=== PATIENT | female | born 1970 | race Caucasian/White ===

== ENCOUNTER → 2017-05-19 | Day surgery (SDC) | payer OTHER ==
--- NOTE | 2017-05-19 14:58 | RADIOLOGY REPORT (SQ) ---
EXAM DESCRIPTION: ARTHRO SHOULDER INJECTION; FLUORO/NEEDLE PLACEMENT COMPLETED DATE/TIME: 05/19/2017 2:06 pm; 05/19/2017 2:07 pm REASON FOR STUDY: IMPINGEMENT SYNDROME OF LEFT SHOULDER M75.42 IMPINGEMENT SYNDROME OF LEFT SHOULDE R COMPARISON: None. FLUOROSCOPY TIME: 0.2 minutes. 1 images saved to PACS. LIMITATIONS: None. PROCEDURE: Procedure, risks, benefits and alternatives explained to patient who then gave written co nsent. The left shoulder was marked and a time out was called for correct procedure verification. Po sterior entry site marked using fluoroscopic guidance. Shoulder prepped and draped using sterile simon hnique. Local anesthesia achieved using 1% lidocaine injection. Hypodermic needle introduced into t he joint space under direct fluoroscopic visualization. Non-ionic contrast instilled to confirm intra -articular position. Dilute gadolinium solution then injected. Needle removed and entry site covered with sterile bandage. No immediate complications noted. TECHNIQUE: Digital images acquired during fluoroscopy and stored on PACS. Patient immediately take n to the MR suite for additional imaging. INJECTION LOCATION: Posterior left shoulder. CONTRAST TYPE AND AMOUNT: 1 mL Isovue-300 and 12 mL ProHance saline mixture. IMPRESSION: SUCCESSFUL NEEDLE PLACEMENT AND INJECTION FOR LEFT SHOULDER MR ARTHROGRAM USING POSTERIO R APPROACH. COMMENT: Quality ID [id number]: Final reports for procedures using fluoroscopy that document radiation exp osure indices, or exposure time and number of fluorographic images (if radiation exposure indices are not available) TECHNICAL DOCUMENTATION: JOB ID: [id number] [employer]- All Rights Reserved
--- NOTE | 2017-05-20 09:09 | RADIOLOGY REPORT (SQ) ---
EXAM DESCRIPTION: MRI LT UPPER JOINT WITH COMPLETED DATE/TIME: 05/19/2017 2:53 pm REASON FOR STUDY: IMPINGEMENT SYNDROME OF LEFT SHOULDER M75.42 IMPINGEMENT SYNDROME OF LEFT SHOULDE R COMPARISON: None. TECHNIQUE: Left shoulder images acquired and stored on PACS. Oblique coronal, oblique sagittal, and axial imaging to include fat sensitive sequences as T1, water sensitive sequences as FST2/STIR, and c ontrast sensitive sequences as FST1. LIMITATIONS: None. FINDINGS: JOINT DISTENTION: Adequate distention for interpretation. BONE MARROW AND CORTEX: Normal. No significant osteophytes. No edema or defects. AC JOINT: Type II acromion. Moderate acromioclavicular joint bony spurring, mildly narrowing the suba cromial recess. GLENOHUMERAL JOINT: No subluxation or dislocation. No focal chondral defects or reactive bone changes . ROTATOR CUFF: Entire distal supraspinatus tendon is thickened and diffusely high in signal with a ful l-thickness tear along its anterior edge, allowing intra-articular contrast into the subacromial/subd eltoid bursa Tendinopathy in the anterior edge of the infraspinatus tendon and undersurface distal infraspinatus t endon without full-thickness tear. Subscapularis intact. LABRUM AND BICEPS LABRAL COMPLEX: Intra-articular long head biceps tendon is intact. There is a smal l tear at superior labral insertion on axial images 6-8. No paralabral cysts. Tear extends into the anterior superior labrum on axial image 10. INFERIOR LABRAL COMPLEX: Bony glenoid and labrum intact. IGHL intact without thickening or tear. No p aralabral cysts. ADJACENT SOFT TISSUES: No masses or nodes. OTHER: No other significant finding. IMPRESSION: Acromioclavicular joint hypertrophy Tendinopathy throughout the distal supraspinatus tendon with a full-thickness anterior supraspinatus tendon tear Infraspinatus tendinopathy Superior labral tear extending into the anterior superior labrum. No paralabral cysts TECHNICAL DOCUMENTATION: JOB ID: [id number] [employer]- All Rights Reserved
== END ==
LOC: RAD 12:50
PROVIDERS: ATTEND Orthopaedic Surgery Sports Medicine
PROC: BP09ZZZ Plain Radiography of Left Shoulder (ICD-10-PCS; principal; 2017-05-19)
DX: S43.432A Superior glenoid labrum lesion of left shoulder, initial encounter (principal); X58.XXXA Exposure to other specified factors, initial encounter; M75.42 Impingement syndrome of left shoulder
CPT/HCPCS: 73222; 77002; 23350; A9576